=== PATIENT | female | born 2000 | race Two or more races ===

== ENCOUNTER 2025-01-16 19:29 | Inpatient (IN) ==
[2025-01-16] MEDS ORDERED: REGLAN INJ 10 MG VIAL IVP PRN (19:50)
[2025-01-16] MEDS ORDERED: ZOFRAN INJ 4 MG VIAL IVP PRN (19:50)
[2025-01-16 19:58] VITALS: BMI 24.9
[2025-01-16] MEDS: LR 1,000 ML IV 1,000 ML IV SCH (20:15)
[2025-01-16 20:36] LABS: BASOPHILS # (AUTO) 0.1 X10^3/uL (0.0-0.1); BASOPHILS % (AUTO) 0.6 % (0.2-1.0); EOSINOPHILS % (AUTO) 0.3 % (0.9-2.9); HEMATOCRIT 37.3 % (36.0-47.0); HEMOGLOBIN 12.5 g/dL (12.0-16.0); LYMPHOCYTES # (AUTO) 4.1 X10^3/uL (1.3-2.9); LYMPHOCYTES % (AUTO) 26.6 % (21.0-51.0); MEAN CORPUSCULAR HGB CONC 33.5 g/dL (33.0-35.0); MEAN CORPUSCULAR VOLUME 83.6 fL (80.0-100.0); MEAN PLATELET VOLUME 10.4 fL (7.4-11.0); MONOCYTES # (AUTO) 0.8 x10^3/uL (0.3-0.8); NEUTROPHILS # (AUTO) 10.4 x10^3/uL (2.2-4.8); NEUTROPHILS % (AUTO) 67.5 % (42.0-75.0); PLATELET COUNT 181 X10^3/uL (150.0-450.0); RED BLOOD COUNT 4.46 X10^6/uL (3.5-5.4); RED CELL DISTRIBUTION WIDTH 13.8 % (11.6-16.5); WHITE BLOOD COUNT 15.5 X10^3/uL (3.6-10.0)
[2025-01-16] MEDS: OXYTOCIN 20 UNIT/1,000 ML-NS 20 UNIT/1,000 ML PLAST..BAG IV PRN (20:45)
[2025-01-16 20:47] LABS: BLOOD UREA NITROGEN 5 mg/dL (7-18); CALCIUM 9.4 mg/dL (8.5-10.1); CARBON DIOXIDE 20.9 mmol/L (21-32); CHLORIDE 101 mmol/L (98-107); CREATININE 0.48 mg/dL (0.55-1.02); GLUCOSE 83 mg/dL (65-99); SODIUM 135 mmol/L (136-145); eGFR NON BLACK RACES > 60 (>60)
[2025-01-16] MEDS: BETADINE SOLN ONE (20:47)
[2025-01-16] MEDS: LR 1,000 ML IV 1,000 ML IV ONE (20:48)
[2025-01-16] MEDS: PITOCIN ONE (20:49)
[2025-01-16 20:53] LABS: POTASSIUM 3.6 mmol/L (3.5-5.1)
[2025-01-16] MEDS: NUBAIN INJ 20 MG AMP IVP PRN (21:23)
[2025-01-17] MEDS: PITOCIN IVP ONE (02:15)
[2025-01-17] MEDS: NUBAIN INJ 10 MG AMP ONE (02:51)
[2025-01-17] MEDS: OXYTOCIN 20 UNIT/1,000 ML-NS 20 UNIT/1,000 ML PLAST..BAG IV SCH (02:51)
[2025-01-17] MEDS ORDERED: AMBIEN PO PRN (03:15)
[2025-01-17] MEDS ORDERED: DERMOPLAST PAIN RELIEF SPRAY TOP PRN (03:15)
[2025-01-17] MEDS ORDERED: MILK OF MAGNESIA PO PRN (03:15)
[2025-01-17 05:10] LABS: HEMATOCRIT 30.7 % (36.0-47.0); HEMOGLOBIN 10.4 g/dL (12.0-16.0)
[2025-01-17] MEDS: MOTRIN TAB 800 MG PO PRN (06:21)
[2025-01-17] MEDS: PRENATAL PLUS PO SCH (08:09)
[2025-01-17] MEDS: LR 1,000 ML IV 1,000 ML IV ONE (13:27)
[2025-01-18] MEDS ORDERED: ADACEL or BOOSTRIX TDaP VACCINE IM ONE (03:17)
[2025-01-18] MEDS: ADACEL or BOOSTRIX TDaP VACCINE IM ONE (03:23)
[2025-01-18 13:22] VITALS: BP 98/55; PULSE 76; RESP 18; TEMP 98.2; O2SAT 100
== END 2025-01-18 13:05 | disposition home or self-care (01) | DRG 807 ==
LOC: ER 19:29 → LD 19:47 → MED/SURG 01-17 03:17
PROVIDERS: ADMIT Obstetrics & Gynecology Obstetrics; ATTEND Obstetrics & Gynecology Obstetrics
DX: Z37.0 Single live birth; Z3A.39 39 weeks gestation of pregnancy; O26.893 Other specified pregnancy related conditions, third trimester